=== PATIENT | female | born 1960 | race Two or more races ===

== ENCOUNTER 2020-01-09 04:00 | Inpatient (IN) | payer MEDICARE, OTHER ==
[2020-01-09] MEDS ORDERED: ACETAMINOPHEN 650 MG/SUPP.RECT RC PRN (05:00)
[2020-01-09] MEDS ORDERED: IPRATROPIUM NEB FS 0.5 MG/2.5 ML AMPUL.NEB NEB PRN (05:00)
[2020-01-09] MEDS ORDERED: ALBUTEROL FS 2.5 MG/0.5 ML VIAL.NEB NEB PRN (05:00)
[2020-01-09] MEDS ORDERED: CEFTRIAXONE 1 G VIAL ONE (05:35)
[2020-01-09] MEDS: IV NS 0.9% 1,000 ML IV SCH ×2 (05:39→18:39)
[2020-01-09] MEDS: CEFTRIAXONE 1 G in IV D5W 50 ML IV SCH (05:39)
[2020-01-09] MEDS: AZITHROMYCIN 250 MG TABLET PO SCH (05:42)
[2020-01-09] MEDS ORDERED: OMEP40CA13 PO (08:30)
[2020-01-09] MEDS ORDERED: LORA2TAB95 PO (08:30)
[2020-01-09] MEDS ORDERED: OLAN15TA3 PO (08:30)
[2020-01-09] MEDS ORDERED: PANTOPRAZOLE 40 MG VIAL IV SCH (09:00)
[2020-01-09] MEDS: ENOXAPARIN SODIUM 40 MG/0.4 ML DISP.SYRIN SQ SCH (10:06)
[2020-01-09] MEDS: POTASSIUM CHLORIDE 20 MEQ TAB.PRT.SR PO SCH ×2 (12:47→14:39)
[2020-01-09] MEDS: MORPHINE SULFATE INJ 2 MG/ML DISP.SYRIN IV PRN ×2 (14:38→20:47)
[2020-01-10] MEDS: MORPHINE SULFATE INJ 2 MG/ML DISP.SYRIN IV PRN ×3 (03:14→20:51)
[2020-01-10] MEDS: CEFTRIAXONE 1 G in IV D5W 50 ML IV SCH (04:37)
[2020-01-10] MEDS: IV NS 0.9% 1,000 ML IV SCH ×2 (04:38→21:00)
[2020-01-10] MEDS: AZITHROMYCIN 250 MG TABLET PO SCH (04:41)
[2020-01-10] MEDS: PANTOPRAZOLE 40 MG TABLET.DR PO SCH (07:13)
[2020-01-10] MEDS ORDERED: IOHEXOL-300 100 ML VIAL IV ONE (08:22)
[2020-01-10] MEDS ORDERED: CT SWABBABLE VALVE TRANS SET 1 EA INFUS.SET MC ONE (08:22)
[2020-01-10] MEDS ORDERED: IV NS 0.9% 250 ML IV ONE (08:22)
[2020-01-10] MEDS: ENOXAPARIN SODIUM 40 MG/0.4 ML DISP.SYRIN SQ SCH (08:35)
[2020-01-10] MEDS: OLANZAPINE 5 MG TABLET PO SCH ×2 (11:00→16:27)
[2020-01-10] MEDS ORDERED: LORAZEPAM 1 MG TABLET PO PRN (11:00)
[2020-01-10] MEDS ORDERED: PIPERACILLIN /TAZOBACTAM 3.375 G in IV D5W 50 ML IV SCH (12:00)
[2020-01-10] MEDS: POTASSIUM CHLORIDE 20 MEQ TAB.PRT.SR PO SCH ×3 (14:03→16:27)
[2020-01-10] MEDS: PIPERACILLIN /TAZOBACTAM 3.375 G in IV D5W 100 ML IV SCH (17:10)
[2020-01-10] MEDS: ONDANSETRON HCL/PF 4 MG/2 ML VIAL IVP PRN (20:51)
[2020-01-11] MEDS: PIPERACILLIN /TAZOBACTAM 3.375 G in IV D5W 100 ML IV SCH ×3 (01:14→17:33)
[2020-01-11] MEDS: AZITHROMYCIN 250 MG TABLET PO SCH (05:05)
[2020-01-11] MEDS: OLANZAPINE 5 MG TABLET PO SCH ×2 (08:20→17:33)
[2020-01-11] MEDS: PANTOPRAZOLE 40 MG TABLET.DR PO SCH (08:20)
[2020-01-11] MEDS: ENOXAPARIN SODIUM 40 MG/0.4 ML DISP.SYRIN SQ SCH (08:22)
[2020-01-11] MEDS ORDERED: Medication Not On Formulary EA (Omeprazole 40 MG) PO SCH (09:00)
[2020-01-11] MEDS: MORPHINE SULFATE INJ 2 MG/ML DISP.SYRIN IV PRN ×2 (09:02→20:17)
[2020-01-11] MEDS: ONDANSETRON HCL/PF 4 MG/2 ML VIAL IVP PRN (09:04)
[2020-01-11] MEDS: IV NS 0.9% 1,000 ML IV SCH (09:28)
[2020-01-11] MEDS: POTASSIUM CHLORIDE 20 MEQ TAB.PRT.SR PO SCH ×2 (10:45→11:41)
[2020-01-11] MEDS ORDERED: MAGNESIUM HYDROXIDE 30 ML UDC PO PRN (17:30)
[2020-01-11] MEDS: DOCUSATE SODIUM 100 MG CAPSULE PO SCH (17:33)
[2020-01-11] MEDS: Potassium Chloride 20 MEQ in IV NS 0.9% 1,000 ML IV PRN (20:18)
[2020-01-12] MEDS: MORPHINE SULFATE INJ 2 MG/ML DISP.SYRIN IV PRN ×3 (00:45→14:15)
[2020-01-12] MEDS: PIPERACILLIN /TAZOBACTAM 3.375 G in IV D5W 100 ML IV SCH ×3 (01:01→18:01)
[2020-01-12] MEDS: AZITHROMYCIN 250 MG TABLET PO SCH (05:18)
[2020-01-12] MEDS: DOCUSATE SODIUM 100 MG CAPSULE PO SCH ×2 (08:16→18:01)
[2020-01-12] MEDS: OLANZAPINE 5 MG TABLET PO SCH ×2 (08:17→18:01)
[2020-01-12] MEDS: PANTOPRAZOLE 40 MG TABLET.DR PO SCH (08:17)
[2020-01-12] MEDS: ENOXAPARIN SODIUM 40 MG/0.4 ML DISP.SYRIN SQ SCH (08:18)
[2020-01-12] MEDS: Potassium Chloride 20 MEQ in IV NS 0.9% 1,000 ML IV PRN (18:39)
[2020-01-13] MEDS: PIPERACILLIN /TAZOBACTAM 3.375 G in IV D5W 100 ML IV SCH ×3 (02:40→17:29)
[2020-01-13] MEDS: AZITHROMYCIN 250 MG TABLET PO SCH (05:02)
[2020-01-13] MEDS: DOCUSATE SODIUM 100 MG CAPSULE PO SCH ×2 (10:00→17:27)
[2020-01-13] MEDS: OLANZAPINE 5 MG TABLET PO SCH ×2 (10:00→17:27)
[2020-01-13] MEDS: ENOXAPARIN SODIUM 40 MG/0.4 ML DISP.SYRIN SQ SCH (10:09)
[2020-01-13] MEDS: PANTOPRAZOLE 40 MG TABLET.DR PO SCH (10:12)
[2020-01-14] MEDS: PIPERACILLIN /TAZOBACTAM 3.375 G in IV D5W 100 ML IV SCH ×3 (01:55→17:32)
[2020-01-14] MEDS: PANTOPRAZOLE 40 MG TABLET.DR PO SCH (06:32)
[2020-01-14] MEDS: DOCUSATE SODIUM 100 MG CAPSULE PO SCH ×2 (09:24→17:44)
[2020-01-14] MEDS: OLANZAPINE 5 MG TABLET PO SCH ×2 (09:24→17:44)
[2020-01-14] MEDS: ENOXAPARIN SODIUM 40 MG/0.4 ML DISP.SYRIN SQ SCH (09:27)
[2020-01-14] MEDS: MORPHINE SULFATE INJ 2 MG/ML DISP.SYRIN IV PRN (19:50)
[2020-01-15] MEDS: PIPERACILLIN /TAZOBACTAM 3.375 G in IV D5W 100 ML IV SCH ×3 (02:08→17:29)
[2020-01-15] MEDS: DOCUSATE SODIUM 100 MG CAPSULE PO SCH ×2 (09:12→17:29)
[2020-01-15] MEDS: OLANZAPINE 5 MG TABLET PO SCH ×2 (09:13→17:29)
[2020-01-15] MEDS: ENOXAPARIN SODIUM 40 MG/0.4 ML DISP.SYRIN SQ SCH (09:14)
[2020-01-15] MEDS: PANTOPRAZOLE 40 MG TABLET.DR PO SCH (09:19)
[2020-01-16] MEDS: PIPERACILLIN /TAZOBACTAM 3.375 G in IV D5W 100 ML IV SCH ×3 (01:09→17:43)
[2020-01-16] MEDS: DOCUSATE SODIUM 100 MG CAPSULE PO SCH ×2 (08:56→16:51)
[2020-01-16] MEDS: OLANZAPINE 5 MG TABLET PO SCH ×2 (08:56→16:51)
[2020-01-16] MEDS: PANTOPRAZOLE 40 MG TABLET.DR PO SCH (08:56)
[2020-01-16] MEDS: ENOXAPARIN SODIUM 40 MG/0.4 ML DISP.SYRIN SQ SCH (08:57)
[2020-01-17] MEDS: PIPERACILLIN /TAZOBACTAM 3.375 G in IV D5W 100 ML IV SCH ×3 (02:42→17:41)
[2020-01-17] MEDS: OLANZAPINE 5 MG TABLET PO SCH ×2 (09:08→17:40)
[2020-01-17] MEDS: PANTOPRAZOLE 40 MG TABLET.DR PO SCH (09:08)
[2020-01-17] MEDS: DOCUSATE SODIUM 100 MG CAPSULE PO SCH ×2 (09:08→17:40)
[2020-01-17] MEDS: ENOXAPARIN SODIUM 40 MG/0.4 ML DISP.SYRIN SQ SCH (09:09)
[2020-01-18] MEDS: PIPERACILLIN /TAZOBACTAM 3.375 G in IV D5W 100 ML IV SCH ×3 (01:39→18:13)
[2020-01-18] MEDS: DOCUSATE SODIUM 100 MG CAPSULE PO SCH ×2 (08:41→17:17)
[2020-01-18] MEDS: ENOXAPARIN SODIUM 40 MG/0.4 ML DISP.SYRIN SQ SCH (08:41)
[2020-01-18] MEDS: OLANZAPINE 5 MG TABLET PO SCH ×2 (08:41→17:17)
[2020-01-18] MEDS: PANTOPRAZOLE 40 MG TABLET.DR PO SCH (08:41)
[2020-01-19] MEDS: PIPERACILLIN /TAZOBACTAM 3.375 G in IV D5W 100 ML IV SCH ×3 (01:53→17:45)
[2020-01-19] MEDS: OLANZAPINE 5 MG TABLET PO SCH ×2 (09:33→16:31)
[2020-01-19] MEDS: PANTOPRAZOLE 40 MG TABLET.DR PO SCH (09:33)
[2020-01-19] MEDS: DOCUSATE SODIUM 100 MG CAPSULE PO SCH ×2 (09:33→16:30)
[2020-01-19] MEDS: ENOXAPARIN SODIUM 40 MG/0.4 ML DISP.SYRIN SQ SCH (09:34)
[2020-01-19] MEDS: MORPHINE SULFATE INJ 2 MG/ML DISP.SYRIN IV PRN (16:45)
[2020-01-20] MEDS: PIPERACILLIN /TAZOBACTAM 3.375 G in IV D5W 100 ML IV SCH ×2 (01:24→09:02)
[2020-01-20] MEDS: DOCUSATE SODIUM 100 MG CAPSULE PO SCH (08:19)
[2020-01-20] MEDS: PANTOPRAZOLE 40 MG TABLET.DR PO SCH (08:19)
[2020-01-20] MEDS: OLANZAPINE 5 MG TABLET PO SCH (08:19)
[2020-01-20] MEDS: ENOXAPARIN SODIUM 40 MG/0.4 ML DISP.SYRIN SQ SCH (08:22)
== END 2020-01-20 14:09 | disposition home or self-care (01) | DRG 871 ==
DX: A41.9 Sepsis, unspecified organism (principal); J69.0 Pneumonitis due to inhalation of food and vomit; J98.11 Atelectasis; F20.0 Paranoid schizophrenia; Z86.018 Personal history of other benign neoplasm; E87.6 Hypokalemia; Z79.899 Other long term (current) drug therapy; E80.6 Other disorders of bilirubin metabolism; Z98.890 Other specified postprocedural states; Z81.8 Family history of other mental and behavioral disorders; Z87.01 Personal history of pneumonia (recurrent); Z87.891 Personal history of nicotine dependence; E66.9 Obesity, unspecified; Z68.32 Body mass index [BMI] 32.0-32.9, adult; K76.0 Fatty (change of) liver, not elsewhere classified; E83.51 Hypocalcemia; R59.1 Generalized enlarged lymph nodes; E03.9 Hypothyroidism, unspecified; K59.00 Constipation, unspecified; J98.4 Other disorders of lung; E11.9 Type 2 diabetes mellitus without complications; K81.9 Cholecystitis, unspecified

== ENCOUNTER 2020-09-24 17:16 | Inpatient (IN) | payer MEDICARE, OTHER ==
[~2020-09-24] VITALS: Ht 154.9 cm; Wt 78.5 kg
[~2020-09-24 17:16] MED LIST: LORA2TAB95 PO; OLAN15TA3 PO; OMEP40CA21 PO
[2020-09-24 19:20] VITALS: BP 123/74
--- NOTE | 2020-09-24 19:20 | NUR ---
DIRECT ADMIT NOTE RECEIVED PATIENT A DIRECT ADMIT FROM [facility]. PATIENT ALERT AND ORIENTED X3, MAORI SPEAKING. GRAPE CUTTER AT BEDSIDE. PATIENT ABLE TO MAKE NEEDS KNOWN. WITH 3/10 PAIN ON BILATERAL KNEES AND FEET FROM S/P FALL. WILL ADMINISTER MEDS PRN. NON-PHARMACOLOGICAL INTERVENTIONS RENDERED. ON O2 2L VIA NASAL CANNULA, O2 SAT 95%. IV ACCESS ON LEFT WRIST #20 PATENT AND INTACT. SKIN ASSESSMENT DONE, NOTED WITH BILATERAL KNEE ABRASIONS AND LEFT ANKLE BRUISE. ORIENTED PATIENT TO ROOM AND CALL LIGHT. BED LOCKED AND IN LOWEST POSITION. CALL LIGHT WITHIN REACH. SAFETY MEASURES MAINTAINED. ALL NEEDS ANTICIPATED.
[2020-09-24] MEDS ORDERED: ONDANSETRON HCL/PF 4 MG/2 ML VIAL IVP PRN (20:30)
[2020-09-24] MEDS ORDERED: Z GUARD REMEDY 2 OZ OINT TP PRN (20:30)
[2020-09-24 20:43] LABS: BASOPHILS % (AUTO) 0.5 % (0.0-2.0); EOSINOPHILS % (AUTO) 2.5 % (0.0-6.0); HEMATOCRIT 34 % (33-45); HEMOGLOBIN 11.4 g/dL (11.5-14.8); LYMPHOCYTES # (AUTO) 2.8 /CMM (0.8-4.8); LYMPHOCYTES % (AUTO) 26.8 % (20.0-44.0); MEAN CORPUSCULAR HGB CONC 34 g/dl (31.0-36.0); MEAN CORPUSCULAR VOLUME 95 fL (82-100); MONOCYTES # (AUTO) 0.7 /CMM (0.1-1.30); MONOCYTES % (AUTO) 6.5 % (2.0-12.0); NEUTROPHILS # (AUTO) 6.8 /CMM (1.8-8.9); NEUTROPHILS % (AUTO) 63.7 % (43.0-81.0); PLATELET COUNT (AUTO) 244 /CMM (150-450); RED BLOOD CELL COUNT(AUTO) 3.56 MIL/uL (4.0-5.2); WHITE BLOOD COUNT (AUTO) 10.6 K/uL (4.3-11.0)
[2020-09-24] MEDS ORDERED: ENOXAPARIN SODIUM 40 MG/0.4 ML DISP.SYRIN SQ SCH (21:00)
[2020-09-24 21:25] LABS: ALBUMIN 2.6 g/dL (3.4-5.0); BILIRUBIN,TOTAL 0.6 mg/dL (0.2-1.0); CALCIUM, SERUM 8.4 mg/dL (8.5-10.1); CREATININE 0.7 mg/dL (0.6-1.3); MAGNESIUM 1.4 mg/dL (1.8-2.4); PHOSPHORUS 2.5 mg/dL (2.5-4.9); POTASSIUM 2.9 mmol/L (3.5-5.1); TOTAL PROTEIN, SERUM 6.4 g/dL (6.4-8.2)
[2020-09-24] MEDS: IV LR 1000 ML 1,000 ML IV PRN (22:21)
[2020-09-24] MEDS: LORAZEPAM 1 MG TABLET PO PRN (23:45)
[2020-09-24] MEDS: ACETAMINOPHEN 325 MG TABLET PO PRN (23:45)
[2020-09-25] VITALS: BP 118/74
[2020-09-25 02:27] LABS: BASOPHILS # (AUTO) 0.1 /CMM (0.0-0.2); BASOPHILS % (AUTO) 0.9 % (0.0-2.0); EOSINOPHILS % (AUTO) 2.4 % (0.0-6.0); HEMATOCRIT 34 % (33-45); HEMOGLOBIN 11.5 g/dL (11.5-14.8); LYMPHOCYTES # (AUTO) 3.3 /CMM (0.8-4.8); LYMPHOCYTES % (AUTO) 30.9 % (20.0-44.0); MEAN CORPUSCULAR HGB CONC 34 g/dl (31.0-36.0); MEAN CORPUSCULAR VOLUME 94 fL (82-100); MONOCYTES # (AUTO) 0.7 /CMM (0.1-1.30); MONOCYTES % (AUTO) 6.4 % (2.0-12.0); NEUTROPHILS # (AUTO) 6.3 /CMM (1.8-8.9); NEUTROPHILS % (AUTO) 59.4 % (43.0-81.0); PLATELET COUNT (AUTO) 244 /CMM (150-450); RED BLOOD CELL COUNT(AUTO) 3.59 MIL/uL (4.0-5.2); WHITE BLOOD COUNT (AUTO) 10.6 K/uL (4.3-11.0)
[2020-09-25 02:37] LABS: ALBUMIN 2.6 g/dL (3.4-5.0); BILIRUBIN,TOTAL 0.7 mg/dL (0.2-1.0); CALCIUM, SERUM 8.4 mg/dL (8.5-10.1); CREATININE 0.5 mg/dL (0.6-1.3); MAGNESIUM 1.4 mg/dL (1.8-2.4); POTASSIUM 2.9 mmol/L (3.5-5.1); TOTAL PROTEIN, SERUM 6.3 g/dL (6.4-8.2)
[2020-09-25 02:47] LABS: THYROID STIMULATING HORMONE 4.387 uIU/mL (0.358-3.74)
--- NOTE | 2020-09-25 03:00 | NUR ---
0300 YANE MCCRAY WAS NOTIFIED OF K+ 2.9 WITH ORDER TO GIVE KDUR 40MEG PO X ONE DOSE, ORDER NOTED AND CARRIED OUT.
[2020-09-25] MEDS ORDERED: POTASSIUM CHLORIDE 20 MEQ TAB.PRT.SR PO ONE (03:30)
[2020-09-25 04:00] VITALS: BP 129/87
[2020-09-25] MEDS: IV LR 1000 ML 1,000 ML IV PRN ×2 (06:17→17:13)
--- NOTE | 2020-09-25 06:32 | NUR ---
RN NOTE PATIENT ALERT AND ORIENTED X3. PATIENT ABLE TO MAKE NEEDS KNOWN. ON O2 2L VIA NASAL CANNULA, O2 SAT 95%. RESPIRATIONS EVEN AND UNLABORED. IV ACCESS ON LEFT WRIST #20 PATENT AND INTACT RUNNING LACTATED RINGER'S @ 125ML/HR. ALL NEEDS ATTENDED PROMPTLY. BED LOCKED AND IN LOWEST POSITION. CALL LIGHT WITHIN REACH. SAFETY MEASURES MAINTAINED. WILL ENDORSE TO AM SHIFT.
[2020-09-25 08:00] VITALS: BP 125/67
--- NOTE | 2020-09-25 08:00 | NUR ---
MANAGER ROOM NOTE NOTES PATENT IN BED ,ALERT ORIENTED X3 , ON RA NO SOB NOTED AT THIS TIME , ON TELE MONITOR SR , BOTH KNEE WITH ABRASION NO BLEEDING NOTED ,KEEP CLEAN DRY , ABLE TO EAT BREAKFAST SELF , LT WRIST HL INTACT AND FLASHED WELL ,ON IVF ORDERED , BED IN LOWEST AND LOCKED POSITION , PLAN OF CARTE DISCUSSED WITH PATIENT, CALL LIGHT WITHIN REACH, WILL MONITOR
[2020-09-25] MEDS: ENOXAPARIN SODIUM 80 MG/0.8 ML DISP.SYRIN SQ SCH ×2 (08:22→21:37)
[2020-09-25] MEDS: ACETAMINOPHEN 325 MG TABLET PO PRN (08:29)
--- NOTE | 2020-09-25 09:00 | NUR ---
wireless telegrapher note assisted to bsc ,able to make bm ,keep clean dry
--- NOTE | 2020-09-25 11:00 | NUR ---
AIR TRAFFIC CONTROL OPERATOR NOTE SPOKE WITH DR PENALOZA NOTIFIED THAT PATIENT C\O ABDOMUNAL PAIN EARLIER AND TYLENOL PO WAS GIVEN , ALSO AWARE THAT TROPONIN 0.935 AND ABLE TO MAKE BM , STATED THAT WILL CHECK ALL OF ABOVE Addendum: 09/25/20 at 1619 by ALLY MARIA RN 1100 dr penaloza notified that k 2.9 at 0200 and replaced last night, stated that will order check electrolytes in am
--- NOTE | 2020-09-25 11:59 | NUR ---
HULLER OPERATOR NOTE PER PHARMACY AND DR SHERLYN WALTON TO STOP HEPARIN DRIP Addendum: 09/25/20 at 1222 by ALLY MARIA RN WRONG CHARTING
[2020-09-25 12:00] VITALS: BP 140/71
--- NOTE | 2020-09-25 12:22 | NUR ---
LETTUCE TRIMMER NOTE DR SAENZ GAMBLING MONITOR AT BEDSIDE AWARE 2.9 OK TO OK INCREASE IVF AT 200 ML PER HOUR AND FOR PAIN NORCO Q6 HOUR PRN, ORDER CARRIED OUT
[2020-09-25] MEDS ORDERED: HYDROCODONE/APAP 5/325MG TABLET PO PRN (12:30)
[2020-09-25] MEDS ORDERED: DEXTROSE 50%-WATER 50 ML DISP.SYRIN IV PRN (13:00)
[2020-09-25] MEDS: Magnesium 1GM/D5W 100ML PREMIX 100 ML IV SCH ×4 (14:05→17:10)
--- NOTE | 2020-09-25 15:00 | NUR ---
television cabinet finisher note patient c\o leg pain ,ice pack applied,cont on ivf as ordered at 200 ml per hour
[2020-09-25 16:00] VITALS: BP 121/68
[2020-09-25] MEDS: INSULIN REGULAR, HUMAN 100 UNIT/ML 3 ML VIAL SQ PRN (17:20)
[2020-09-25] MEDS: BLOOD SUGAR DIAGNOSTIC 1 EACH STRIP VI SCH ×2 (17:31→22:25)
--- NOTE | 2020-09-25 18:59 | NUR ---
teletray operator note patient in bed alert oriented ,on ra , no sob noted at this time,on ivf as ordered 200 ml per hour, able to urinate well ,keep clean dry , bed in lowest and locked position ice pack min placed for legs pain, call light within reach, will cont to monitor closely
--- NOTE | 2020-09-25 20:22 | NUR ---
DONKEY DOCTOR OPENING NOTE PATIENT A/OX3; ABLE TO MAKE NEEDS KNOWN. TOLERATING ROOM AIR WELL WITH NO SOB. EXTERNAL BUSINESS CASE ANALYST READS SR AT 97; DENIES PAIN OR DISCOMFORT. L WRIST #20G LR @ 200ML/HR; PATENT AND INTACT. SAFETY MEASURES IN PLACE: BED IN LOWEST LOCKED POSITION, SIDE RAILS UP X2, CALL LIGHT WITHIN EASY REACH, BED ALARMS ON. WILL CONTINUE PLAN OF CARE.
[2020-09-25] MEDS: LORAZEPAM 1 MG TABLET PO PRN (21:52)
--- NOTE | 2020-09-25 21:52 | NUR ---
GLOBAL COMPENSATION DIRECTOR NOTE - ATIVAN PATIENT C/O DIFFICULTY SLEEPING. REQUESTED FOR ATIVAN AND ADMINISTERED ORDERED. WILL CONTINUE TO ASSESS FOR SLEEP PATTERN.
[2020-09-25 22:00] VITALS: BP 119/67
[2020-09-25] MEDS: *INSULIN REGULAR(HUMULIN R)HUM 100 UNIT/ML VIAL SQ PRN (22:26)
[2020-09-26] VITALS: BP 135/79
[2020-09-26] MEDS: IV LR 1000 ML 1,000 ML IV PRN ×3 (01:48→19:00)
[2020-09-26 04:00] VITALS: BP 137/77
[2020-09-26 06:45] LABS: ALBUMIN 2.5 g/dL (3.4-5.0); BILIRUBIN,TOTAL 0.8 mg/dL (0.2-1.0); CALCIUM, SERUM 8.5 mg/dL (8.5-10.1); CREATININE 0.4 mg/dL (0.6-1.3); MAGNESIUM 1.7 mg/dL (1.8-2.4); PHOSPHORUS 2.7 mg/dL (2.5-4.9); TOTAL PROTEIN, SERUM 6.1 g/dL (6.4-8.2)
[2020-09-26 06:54] LABS: BASOPHILS % (AUTO) 0.5 % (0.0-2.0); EOSINOPHILS % (AUTO) 1.5 % (0.0-6.0); HEMATOCRIT 32 % (33-45); LYMPHOCYTES # (AUTO) 2.4 /CMM (0.8-4.8); LYMPHOCYTES % (AUTO) 24.1 % (20.0-44.0); MEAN CORPUSCULAR HGB CONC 34 g/dl (31.0-36.0); MEAN CORPUSCULAR VOLUME 95 fL (82-100); MONOCYTES # (AUTO) 0.7 /CMM (0.1-1.30); MONOCYTES % (AUTO) 7.4 % (2.0-12.0); NEUTROPHILS # (AUTO) 6.7 /CMM (1.8-8.9); NEUTROPHILS % (AUTO) 66.5 % (43.0-81.0); PLATELET COUNT (AUTO) 231 /CMM (150-450); RED BLOOD CELL COUNT(AUTO) 3.39 MIL/uL (4.0-5.2); WHITE BLOOD COUNT (AUTO) 10.1 K/uL (4.3-11.0)
--- NOTE | 2020-09-26 07:09 | NUR ---
MANAGER VOICE CLOSING NOTE PATIENT A/OX3; ABLE TO MAKE NEEDS KNOWN. TOLERATING ROOM AIR WELL WITH NO SOB. EXTERNAL LOBBY ATTENDANT READS SR AT 88; DENIES PAIN OR DISCOMFORT. L WRIST #20G LR @ 200ML/HR; PATENT AND INTACT. SAFETY MEASURES IN PLACE: BED IN LOWEST LOCKED POSITION, SIDE RAILS UP X2, CALL LIGHT WITHIN EASY REACH, BED ALARMS ON. WILL ENDORSE PLAN OF CARE TO ONCOMING MORNING RN.
[2020-09-26 08:00] VITALS: BP 137/80
[2020-09-26] MEDS: BLOOD SUGAR DIAGNOSTIC 1 EACH STRIP VI SCH ×4 (08:15→21:25)
[2020-09-26] MEDS: POTASSIUM CHLORIDE 20 MEQ TAB.PRT.SR PO SCH ×3 (08:21→10:00)
[2020-09-26] MEDS: Magnesium 1GM/D5W 100ML PREMIX 100 ML IV SCH ×2 (08:21→08:30)
[2020-09-26] MEDS: ENOXAPARIN SODIUM 80 MG/0.8 ML DISP.SYRIN SQ SCH ×2 (08:31→20:46)
[2020-09-26] MEDS: INSULIN REGULAR, HUMAN 100 UNIT/ML 3 ML VIAL SQ PRN ×3 (08:32→18:01)
[2020-09-26] MEDS ORDERED: IOHEXOL-350 100 ML VIAL IV ONE (09:29)
[2020-09-26] MEDS ORDERED: METOPROLOL TARTRATE INJ 5 MG/5 ML AMPUL ONE ×3 (09:29→10:53)
[2020-09-26] MEDS ORDERED: NITROGLYCERIN 0.4 MG/TAB BOTTLE ONE (09:29)
[2020-09-26] MEDS ORDERED: CT SWABBABLE VALVE TRANS SET 1 EA INFUS.SET MC ONE (09:29)
[2020-09-26] MEDS ORDERED: IV NS 0.9% 250 ML IV ONE (09:30)
[2020-09-26] MEDS: METOPROLOL TARTRATE INJ 5 MG/5 ML AMPUL IVP PRN ×7 (10:25→10:55)
[2020-09-26] MEDS ORDERED: NITROGLYCERIN 0.4 MG/TAB BOTTLE SL ONE (10:30)
--- NOTE | 2020-09-26 11:09 | NUR ---
report given to jenifer starr for nils.
[2020-09-26] MEDS ORDERED: Magnesium 1GM/D5W 100ML PREMIX PIGGYBACK IV ONE (11:30)
[2020-09-26] MEDS ORDERED: POTASSIUM CHLORIDE 20 MEQ TAB.PRT.SR PO ONE ×2 (11:30→12:35)
[2020-09-26 12:00] VITALS: BP 115/68
[2020-09-26] MEDS ORDERED: Magnesium 1GM/D5W 100ML PREMIX 100 ML IV SCH (12:00)
[2020-09-26 16:00] VITALS: BP 128/75
--- NOTE | 2020-09-26 19:25 | NUR ---
RN CLOSING NOTES PATIENT IS ALERT AND ORIENTED. PATIENT IS BREATHING EVEN AND UNLABORED. ON IV FLUIDS LACTATED RINGER AT 200 CC/HOUR. NO C/O CHEST PAIN VERBALIZED. PATIENT HAD CTA DONE DURING SHIFT. K+ AND MG+ REPLACED. HOB KEPT ELEVATED. CALL LIGHT WITH IN REACH. ENDORSED TO NEXT SHIFT FOR MILAD.
[2020-09-26 20:00] VITALS: BP 115/66
--- NOTE | 2020-09-26 20:00 | NUR ---
RN NOTE PT RECEIVED IN BED A/A/O X3, ON 2L VIA NC SATING 95%, TELE MONITOR SHOWING SR WITH HR IN 80s. WILL CONTINUE WITH PLAN OF CARE.
[2020-09-26] MEDS: *INSULIN REGULAR(HUMULIN R)HUM 100 UNIT/ML VIAL SQ PRN ×2 (21:33→21:34)
[2020-09-27] VITALS: BP 135/88
[2020-09-27] MEDS: IV LR 1000 ML 1,000 ML IV PRN (03:58)
[2020-09-27 04:00] VITALS: BP 139/83
[2020-09-27 05:57] LABS: BASOPHILS # (AUTO) 0.1 /CMM (0.0-0.2); EOSINOPHILS % (AUTO) 1.7 % (0.0-6.0); HEMATOCRIT 31 % (33-45); HEMOGLOBIN 10.6 g/dL (11.5-14.8); LYMPHOCYTES # (AUTO) 2.8 /CMM (0.8-4.8); MEAN CORPUSCULAR HGB CONC 34 g/dl (31.0-36.0); MEAN CORPUSCULAR VOLUME 95 fL (82-100); MONOCYTES # (AUTO) 0.6 /CMM (0.1-1.30); MONOCYTES % (AUTO) 6.3 % (2.0-12.0); NEUTROPHILS # (AUTO) 5.4 /CMM (1.8-8.9); PLATELET COUNT (AUTO) 225 /CMM (150-450)
[2020-09-27 07:06] LABS: CALCIUM, SERUM 8.6 mg/dL (8.5-10.1); CREATININE 0.4 mg/dL (0.6-1.3); MAGNESIUM 1.5 mg/dL (1.8-2.4); PHOSPHORUS 2.8 mg/dL (2.5-4.9); POTASSIUM 3.4 mmol/L (3.5-5.1)
--- NOTE | 2020-09-27 07:11 | NUR ---
RN NOTE REPORT GIVEN TO ONCOMING SHIFT FOR MILAD.
--- NOTE | 2020-09-27 07:39 | NUR ---
REGULATOR TESTER NOTE PATIENT IN BED , ALL NEEDS ATTENDED, ALERT ORIENTED X2 , ON 2L NC NO SOB NOTED AT THIS TIME, ON NPO AT THIS TIME, LT WRIST AND RT AC INTACT AND FLUSHED WELL , BED IN LOWEST AND LOCKED POSITION , ALL NEEDS ATTENDED, CALL LIGHT WITHIN REACH , ON IVF ORDERED , WILL CONT TO MONITOR CLOSELY
[2020-09-27 08:00] VITALS: BP 118/76
[2020-09-27] MEDS: BLOOD SUGAR DIAGNOSTIC 1 EACH STRIP VI SCH ×4 (08:00→23:42)
[2020-09-27] MEDS: ENOXAPARIN SODIUM 80 MG/0.8 ML DISP.SYRIN SQ SCH (08:03)
[2020-09-27] MEDS ORDERED: IOHEXOL-300 100 ML VIAL IV ONE (08:36)
[2020-09-27] MEDS ORDERED: CT SWABBABLE VALVE TRANS SET 1 EA INFUS.SET MC ONE (08:37)
[2020-09-27] MEDS ORDERED: IV NS 0.9% 250 ML IV ONE (08:37)
[2020-09-27] MEDS: Magnesium 1GM/D5W 100ML PREMIX 100 ML IV SCH ×2 (09:28→10:36)
--- NOTE | 2020-09-27 10:30 | NUR ---
WOUND CARE CONSULT: PT PRESENTS WITH ABRASION/SCAB TO LEFT KNEE WHICH IS BLEEDING SLIGHTLY AFTER P.T. TODAY (PRESENT ON ADMISSION). RECOMMENDATIONS MADE FOR SKIN PROTECTION AND WOUND CARE. DISCUSSED WITH NURSING STAFF. MD IN AGREEMENT WITH PLAN OF CARE.
--- NOTE | 2020-09-27 10:42 | NUR ---
telecommunications field technician note pt at bedside able to ambulate with walker with min assistance, also polst form filled out ,patient wants to be dnr ,dr zafar at bedside aware that patient has legs pain stated will order some pain meds, will f\u
[2020-09-27] MEDS ORDERED: POTASSIUM CHLORIDE 20 MEQ TAB.PRT.SR PO SCH (11:00)
[2020-09-27] MEDS ORDERED: IBUPROFEN 400 MG TABLET PO PRN (11:30)
[2020-09-27] MEDS: NEOMY SULF/BACITRAC ZN/POLY 15 GM TUBE TP SCH (11:31)
--- NOTE | 2020-09-27 13:50 | NUR ---
OPERATIONS ENGINEER NOTE RESTING COMFORTABLY IN BED,NOT IN DISTRESS
--- NOTE | 2020-09-27 15:12 | NUR ---
telecommunications sales representative note c\o leg pain3\10 Motrin po given as ordered ,all needs attended, will cont to monitor
[2020-09-27 16:00] VITALS: BP 131/83
--- NOTE | 2020-09-27 18:34 | NUR ---
MS RN NOTE ALL NEEDS ATTENDED,NO SOB NO C\O PAIN AT THIS TIME HAVING DINNER , BED IN LOWEST AND LOCKED POSITION , CALL LIGHT WITHIN REACH, WILL CONT TO MONITOR
[2020-09-27 20:00] VITALS: BP 123/72
[2020-09-27] MEDS: *INSULIN REGULAR(HUMULIN R)HUM 100 UNIT/ML VIAL SQ PRN (23:41)
[2020-09-28 04:00] VITALS: BP 127/80
[2020-09-28 06:29] LABS: BASOPHILS % (AUTO) 0.5 % (0.0-2.0); EOSINOPHILS % (AUTO) 1.6 % (0.0-6.0); HEMATOCRIT 33 % (33-45); HEMOGLOBIN 11.1 g/dL (11.5-14.8); LYMPHOCYTES # (AUTO) 2.4 /CMM (0.8-4.8); LYMPHOCYTES % (AUTO) 24.8 % (20.0-44.0); MEAN CORPUSCULAR HGB CONC 34 g/dl (31.0-36.0); MEAN CORPUSCULAR VOLUME 95 fL (82-100); MONOCYTES # (AUTO) 0.6 /CMM (0.1-1.30); MONOCYTES % (AUTO) 6.3 % (2.0-12.0); NEUTROPHILS # (AUTO) 6.5 /CMM (1.8-8.9); NEUTROPHILS % (AUTO) 66.8 % (43.0-81.0); PLATELET COUNT (AUTO) 230 /CMM (150-450); RED BLOOD CELL COUNT(AUTO) 3.44 MIL/uL (4.0-5.2); WHITE BLOOD COUNT (AUTO) 9.7 K/uL (4.3-11.0)
[2020-09-28 06:35] LABS: CREATININE 0.5 mg/dL (0.6-1.3); MAGNESIUM 1.6 mg/dL (1.8-2.4); PHOSPHORUS 3.8 mg/dL (2.5-4.9); POTASSIUM 3.7 mmol/L (3.5-5.1)
--- NOTE | 2020-09-28 07:30 | NUR ---
RN NOTE PT AWAKE IN BED EATING BREAKING. A/O X3 AND NIGERIAN SPEAKING. UNDERSTANDS SOME MACANESE. NO COMPLAINT OF PAIN OR NAUSEA. ON 2L NC O2 WITH NO SOB OR RESPIRATORY DISTRESS PRESENT. NO STUDENT TRUCK DRIVER PRESENT. NO EDEMA PRESENT. PT HAS DIAPER PRESENT. L KNEE ABRASION PRESENT. WOUND CARE TO BE GIVEN AT 0900. PT IS FALL RISK AND BED ALARM IS ON. IV PRESENT ON L WRIST 20G SL AND FLUSHES WELL. LABS REVIEWED. SAFETY MEASURES IN PLACE. SIDE RAILS RAISED. BED LOWERED. CALL LIGHT WITHIN REACH. WILL CONTINUE TO MONITOR.
[2020-09-28] MEDS: INSULIN REGULAR, HUMAN 100 UNIT/ML 3 ML VIAL SQ PRN ×3 (07:38→17:23)
[2020-09-28] MEDS: BLOOD SUGAR DIAGNOSTIC 1 EACH STRIP VI SCH ×3 (07:38→17:14)
--- NOTE | 2020-09-28 07:39 | NUR ---
RN NOTE PT REFUSED INSULIN DOSE FOR BG OF 132. INTENDED DOSE OF 2U. PT STATES THAT INSULIN FOR CURRENT BG MAKES HER DIZZY. WILL CONTINUE TO MONITOR.
[2020-09-28 08:00] VITALS: BP 123/87
[2020-09-28] MEDS: NEOMY SULF/BACITRAC ZN/POLY 15 GM TUBE TP SCH (08:16)
[2020-09-28] MEDS: Magnesium 1GM/D5W 100ML PREMIX 100 ML IV SCH ×2 (09:49→10:55)
[2020-09-28] MEDS ORDERED: methylPREDNISolone SOD SUCC 125 MG/2ML VIAL IV SCH (10:00)
[2020-09-28 12:00] VITALS: BP 123/87
[2020-09-28 16:00] VITALS: BP 149/86
--- NOTE | 2020-09-28 18:00 | NUR ---
RN NOTE GAVE REPORT TO LUIS CARLOS AT [facility] FOR [facility] AFTER DISCHARGE.
--- NOTE | 2020-09-28 18:35 | NUR ---
RN CLOSING NOTE PT AWAKE IN BED RESTING. A/O X3 AND WALLISIAN SPEAKING. UNDERSTANDS SOME BHUTANESE. NO COMPLAINT OF PAIN OR NAUSEA. ON 2L NC O2 WITH NO SOB OR RESPIRATORY DISTRESS PRESENT. NO LITERATURE TEACHER PRESENT. NO EDEMA PRESENT. PT HAS DIAPER PRESENT. L KNEE ABRASION PRESENT. WOUND CARE GIVEN. IV PRESENT ON L WRIST 20G SL AND FLUSHES WELL. ROUTINE MEDS GIVEN.LABS REVIEWED. SAFETY MEASURES IN PLACE. SIDE RAILS RAISED. BED LOWERED. CALL LIGHT WITHIN REACH. REPORT TO BE GIVEN TO NIGHT NURSE FOR MILAD.
[2020-09-28 20:00] VITALS: BP 143/77
--- NOTE | 2020-09-28 20:30 | NUR ---
SCHOOL PSYCHOLOGY PROFESSOR NOTES [facility], ALERT ORIENTED X3, NO ACUTE DISTRESS NOTED UPON DISCHARGE, BREATHING UNLABORED SATURATING AT 98% ON RA. DISCHARGE INSTRUCTIONS GIVEN INCLUDING HEALTH TEACHING REGARDING CONDITION AND SAFETY MEASURES & PRECAUTIONS AND INFECTION CONTROL AND MEDICATION LIST AND TEACHING. ALL BELONGINGS ACCOUNTED AND GIVEN TO PATIENT.IV ACCESS REMOVED INTACT, NO REDNESS, NO BLEEDING, NO SWELLING NOTED. PICKED UP VIA AMBULANCE IN A GURNEY ACCOMPANIED BY 2 EMT PERSONNEL IN STABLE CONDITION.
[2020-10-01 08:06] LABS: *ANA ANTI-CENTROMERE B AB <0.2 AI (0.0-0.9); *ANA ANTI-DNA(DS) AB, QN <1 IU/mL (0-9); *ANA ANTI-JO-1 <0.2 AI (0.0-0.9); *ANA ANTICHROMATIN ANTIBODY <0.2 AI (0.0-0.9); *ANA RNP ANTIBODIES 0.3 AI (0.0-0.9); *ANA SJOGREN'S ANTI-SS-A <0.2 AI (0.0-0.9); *ANA SJOGREN'S ANTI-SS-B <0.2 AI (0.0-0.9); *ANAANTI-SCLERODERMA-70 AB <0.2 AI (0.0-0.9); *ANASMITH AB <0.2 AI (0.0-0.9)
== END 2020-09-28 20:30 | DRG 557 ==
LOC: TELE1 19:12 → MEDSG1 09-27 15:25
PROVIDERS: ADMIT Nurse Practitioner Acute Care; ATTEND Student in an Organized Health Care Education/Training Program
DX: M62.82 Rhabdomyolysis (principal); N17.0 Acute kidney failure with tubular necrosis; G93.41 Metabolic encephalopathy; I21.A1 Myocardial infarction type 2; E87.3 Alkalosis; J98.11 Atelectasis; F29 Unspecified psychosis not due to a substance or known physiological condition; F41.9 Anxiety disorder, unspecified; F20.9 Schizophrenia, unspecified; Z79.899 Other long term (current) drug therapy; E87.6 Hypokalemia; K21.9 Gastro-esophageal reflux disease without esophagitis; E11.9 Type 2 diabetes mellitus without complications; R59.0 Localized enlarged lymph nodes; E83.42 Hypomagnesemia; R74.01 Elevation of levels of liver transaminase levels; W18.30XD Fall on same level, unspecified, subsequent encounter; M60.9 Myositis, unspecified
CPT/HCPCS: 36415; 74170-TC; 75574; 80048-TC; 80053-TC; 80061-TC; 82550-TC; 82553; 82962-TC; 83735-TC; 84100-TC; 84439-TC; 84443-TC; 84484-TC; 85025-TC; 85652-TC; 86140-TC; 86225; 86235; 86431-TC; 93307-TC; 97116-TC; 97530-TC; G0378; J1650; J1815; J2930; J3475; J3490; J7050; J7120; Q9967